=== PATIENT | male | born 1985 | race African-American/Black ===

== ENCOUNTER 2018-05-29 12:14 | Emergency (ER) | payer OTHER ==
[~2018-05-29] VITALS: Ht 177.8 cm; Wt 72.6 kg
[2018-05-29 12:27] VITALS: BP 118/51
[2018-05-29] MEDS ORDERED: Bacitracin Oint UD TOPIC ONE (12:30)
[2018-05-29] MEDS ORDERED: Ketorolac 30mg Inj IM ONE (12:45)
[2018-05-29] MEDS ORDERED: Lidocaine 1% MPF 10mg/ml 5ml INJ ONE (12:45)
--- NOTE | 2018-05-29 12:48 | Emergency Room Report ---
History of Present Illness General Chief Complaint: Laceration Source: Patient Present Illness HPI 32-year-old male patient presents ER complaining of laceration on his right thumb times few hours. Reports that he was trying to get his keys underneath his car when he cut his hand on something. Reports bleeding well controlled. Reports he is right-hand dominant. Denies loss of range of motion. Reports up- to-date on tetanus vaccination, states that he received a 2 days ago when he sustained a laceration to his left upper arm. Reports that he is ready" when he cut his arm. states was seen by paramedics on the scene at that time who gave him a tetanus shot. reports bleeding well controlled. States was like to know if this laceration could be repaired at this time too. Allergies: Coded Allergies: No Known Allergies (Unverified , 05/29/18) Patient History Past Medical History: see triage record Reviewed Nursing Documentation: PMH: Agreed; PSxH: Agreed Nursing Documentation-PMH Past Medical History: No Stated History Review of Systems All Other Systems: negative except mentioned in HPI Physical Exam Vital Signs Date Time Temp Pulse Resp B/P (MAP) Pulse Ox O2 Delivery O2 Flow Rate FiO2 05/29/18 12:17 98.4 91 20 118/51 96 Room Air 98.4 Sp02 EP Interpretation: reviewed, normal General Appearance: well appearing, no apparent distress, alert, GCS 15, non- toxic Head: normocephalic, atraumatic Eyes: bilateral eye normal inspection, bilateral eye PERRL ENT: hearing grossly normal, normal pharynx, no angioedema, normal voice, uvula midline, moist mucus membranes Neck: full range of motion Respiratory: lungs clear, normal breath sounds, no rhonchi, no respiratory distress, no accessory muscle use, no wheezing, speaking full sentences Cardiovascular #1: regular rate, rhythm, no edema Cardiovascular #2: 2+ radial (R), 2+ radial (L) Musculoskeletal: back normal, digits/nails normal, gait/station normal, normal range of motion, non-tender, other - NVI, Sensation is intact to touch Neurologic: alert, oriented x3, responsive, motor strength/tone normal, sensory intact Psychiatric: mood/affect normal Skin: laceration - Dorsum of his right thumb proximal to the interphalangeal joint: 1 cm laceration, linear, superficial, no active drainage, no surrounding erythema or edema; left midshaft humerus: 5 cm healing laceration, No surrounding erythema are clear, Appears to be healing well, superficial Procedures Laceration/Wound Repair Laceration/Wound Repair : Consent: Verbal Wound Location: upper extremity - Dorsum of right thumb Wound's Depth, Shape: superficial, linear Wound Length (cm): 1 Wound Explored: contaminated Irrigated w/ Saline (ccs): 10 Betadine Prep?: Yes Anesthesia: 1% Lidocaine Volume Anesthetic (ccs): 2 Wound Debrided: extensive Wound Repaired With: sutures Suture Size/Type: 5:0, proline Number of Sutures: 3 Layer Closure?: No Sterile Dressing Applied?: Yes Splint Applied?: No Sling Applied?: No Patient Tolerated: Well Complications: None Medical Decision Making PA Attestation Dr. Contreras is my supervising Physician whom patient management has been discussed with. Diagnostic Impression: Primary Impression: Laceration ER Course Pt presents to ED c/o laceration on right thumb and left upper extremity. DDX considered but are not limited to laceration, abrasion, contusion, cellulitis. VITAL SIGNS are WNL, patient is afebrile ED INTERVENTIONS: full range of motion, able to make a fist, sensation intact to light touch, neurovascularly intact, does not require x-rays imaging at this time. Laceration on left upper extremity artery beginning to heal,Informed patient would not suture it closed, will heal by secondary intention. Wound cleaned and dressed. Bacitracin applied. Patient reports up to date on tetanus. Provided with pain medication in ER. Wound was cleaned and irrigated using normal saline. Local block using Lidocaine 1%. Laceration on right thumb repaired. 3 sutures placed. Wound cleaned and covered using sterile dressing and Bacitracin. Patient reports understanding and agreement to treatment plan. Keep wounds clean and dry. Advised on use of over the counter Neosporin and topical abx. DISCHARGE: Rx provided for Keflex Rx provided for Ibuprofen At this time pt is stable for d/c to home. Patient resting comfortably, in no acute distress, nontoxic appearing, talking without difficulty. Will provide with patient care instructions and any necessary prescriptions. Patient to take medication as instructed. Care plan and follow-up instructions provided. Work note provided to patient. Patient questions asked and answered. Patient instructed to follow-up with primary care provider in 1-3 days for wound check and 7-10 days for removal of sutures ER precautions given. Patient instructed to return to ER immediately for any new or worsening of symptoms. - Please note that this Emergency Department Report was dictated using [employer]aste[employer] technology software, occasionally this can lead to erroneous entry secondary to interpretation by the dictation equipment. Last Vital Signs Date Time Temp Pulse Resp B/P (MAP) Pulse Ox O2 Delivery O2 Flow Rate FiO2 05/29/18 12:27 98.4 20 118/51 96 Room Air 98.4 05/29/18 12:17 91 Disposition: HOME, SELF-CARE Condition: Stable Scripts Ibuprofen* (MOTRIN*) 600 Mg Tablet 600 MG ORAL Q8H PRN for For Pain, #30 TAB 0 Refills Prov: Kirby Hayes 05/29/18 Cephalexin* (KEFLEX*) 500 Mg Capsule 500 MG ORAL EVERY 12 HOURS, #14 CAP 0 Refills Prov: Kirby Hayes 05/29/18 Patient Instructions: Laceration Care, Adult, Nonsutured Laceration Care Additional Instructions: Patient instructed to follow-up with primary care provider in 1-3 days for wound check and 7-10 days for removal of sutures. Take medications as directed. Keep wound clean and dry. Patient questions asked and answered. ER precautions given, patient instructed to return to ER immediately for any new or worsening of symptoms. Kirby Hayes May 29, 2018 12:48
[2018-05-29] MEDS ORDERED: IBUPROFEN600 MG ORAL (13:17)
[2018-05-29] MEDS ORDERED: CEPHALEXIN500 MG ORAL (13:17)
[2018-05-29 13:35] VITALS: BP 115/61
== END 2018-05-29 13:35 | disposition home or self-care (01) ==
LOC: EMR 12:41
DX: S61.011A Laceration without foreign body of right thumb without damage to nail, initial encounter (principal); W45.8XXA Other foreign body or object entering through skin, initial encounter; Y93.89 Activity, other specified; Y92.89 Other specified places as the place of occurrence of the external cause
CPT/HCPCS: 12001; 96372; 99283; J1885; Z7502